=== PATIENT | female | born 1945 | race Asian ===

== ENCOUNTER 2018-01-21 14:29 | Inpatient (IN) | payer MEDICARE, OTHER ==
[2018-01-21 16:01] LABS: WHITE BLOOD COUNT 10.9 10^3/ul (4.8-10.8)
[2018-01-21 16:01] LABS: ABNORMAL IP MESSAGE 1; HEMATOCRIT 35.5 % (37.0-47.0); HEMOGLOBIN 12.4 g/dl (12.0-16.0); MEAN CORPUSCULAR HEMOGLOBIN 32.3 pg (29.0-33.0); MEAN CORPUSCULAR HGB CONC 34.9 g/dl (32.0-37.0); MEAN CORPUSCULAR VOLUME 92.4 fl (82.0-101.0); PLATELET COUNT 211 10^3/UL (140-415); RED BLOOD COUNT 3.84 10^6/ul (4.20-5.40)
[2018-01-21 16:13] LABS: ADD MAN DIFF? YES; POSITIVE DIFF @See below
[2018-01-21 16:26] LABS: LACTIC ACID 2.4 mmol/L (0.5-2.0)
[2018-01-21 16:28] LABS: ALANINE AMINOTRANSFERASE 44 IU/L (13-69); ALBUMIN 4.3 g/dl (3.3-4.9); ALBUMIN/GLOBULIN RATIO 1.26; ALKALINE PHOSPHATASE 104 IU/L (42-121); ANION GAP 21 (8-16); ASPARTATE AMINO TRANSFERASE 93 IU/L (15-46); BLOOD UREA NITROGEN 52 mg/dl (7-20); CALCIUM 10.8 mg/dl (8.4-10.2); CARBON DIOXIDE 21 mmol/L (21-31); CHLORIDE 115 mmol/L (97-110); CREATININE 1.13 mg/dl (0.44-1.00); GLUCOSE 161 mg/dl (70-220); POTASSIUM 3.9 mmol/L (3.5-5.1); SODIUM 153 mmol/L (135-144); TOTAL PROTEIN 7.7 g/dl (6.1-8.1)
[2018-01-21 16:29] LABS: INR 1.05; PARTIAL THROMBOPLASTIN TIME 29.9 Sec (25.0-35.0); PROTIME 13.8 Sec (11.9-14.9); PT RATIO 1.1
[2018-01-21 16:39] LABS: AMPHETAMINE/METHAMPHETAMINE NEGATIVE (NEGATIVE); BARBITURATES NEGATIVE (NEGATIVE); BENZODIAZEPINES POSITIVE (NEGATIVE); CANNABINOIDS NEGATIVE (NEGATIVE); COCAINE NEGATIVE (NEGATIVE); OPIATES NEGATIVE (NEGATIVE)
[2018-01-21 16:41] LABS: TROPONIN-I < 0.012 ng/ml (0.00-0.12)
[2018-01-21 16:43] LABS: ETHANOL < 10.0 mg/dl
[2018-01-21] MEDS: SOD CHLORIDE 0.9% IV (17:01)
[2018-01-21] MEDS: MEROPENEM 500MG/50 ML (PMX) 50 ML IVPB (17:02)
[2018-01-21 17:35] LABS: ADD UMIC NO; ANISOCYTOSIS 1+ (0-0); BAND NEUTROPHILS #M 1.1 10^3/ul (0.0-0.6); BAND NEUTROPHILS % (M) 11 % (0-4); EOSINOPHILS % (M) 2 % (0-7); GIANT THROMBO% (M) 1 % (0-0); LYMPHOCYTES #M 2.5 10^3/ul (0.8-2.9); LYMPHOCYTES % (M) 23 % (15-51); MONOCYTE #M 0.9 10^3/ul (0.3-0.9); MONOCYTES % (M) 9 % (0-11); PLATELET ESTIMATE NORMAL; POIKILOCYTOSIS 1+ (0-0); REACTIVE LYMPHOCYTES #M 2.9 10^3/ul (0.0-0.0); REACTIVE LYMPHOCYTES% (M) 27 % (0-0); SEG NEUT #M 3.2 10^3/ul (1.6-7.5); SEGMENTED NEUTROPHILS (M) % 28 % (39-77); SMUDGE%M 3 % (0-0); UR ASCORBIC ACID 40 mg/dL (NEGATIVE); UR BILIRUBIN (Dip) NEGATIVE (NEGATIVE); UR BLOOD (Dip) NEGATIVE (NEGATIVE); UR CLARITY CLEAR (CLEAR); UR COLOR YELLOW (YELLOW); UR GLUCOSE (Dip) NEGATIVE (NEGATIVE); UR KETONES (Dip) NEGATIVE (NEGATIVE); UR LEUKOCYTE ESTERASE (Dip) NEGATIVE Leu/ul (NEGATIVE); UR NITRITE (Dip) NEGATIVE (NEGATIVE); UR SPECIFIC GRAVITY (Dip) 1.017 (1.003-1.030); UR TOTAL PROTEIN (Dip) NEGATIVE (NEGATIVE); UR UROBILINOGEN (Dip) NEGATIVE (NEGATIVE)
[2018-01-21] MEDS ORDERED: SOD CHLORIDE 0.45% 1,000 ML IV (18:08)
[2018-01-21] MEDS ORDERED: NA PHOSPHATE/BIPHOS 133 ML ENEMA PR (18:30)
[2018-01-21] MEDS ORDERED: ONDANSETRON 4 MG INJ IV (18:30)
[2018-01-21] MEDS ORDERED: hydrALAzine 20 MG INJ IV (18:30)
[2018-01-21] MEDS ORDERED: NITROGLYCERIN (SL) 0.4 MG TAB SL (18:30)
[2018-01-21] MEDS ORDERED: ALBUTEROL/IPRATROPIUM (NEB) 3 ML AMP HHN (18:30)
[2018-01-21] MEDS ORDERED: DOCUSATE SODIUM 100 MG CAP PO (18:30)
[2018-01-21] MEDS ORDERED: MAGNESIUM HYDROXIDE 30ML CUP PO (18:30)
[2018-01-21] MEDS ORDERED: morphine 2 MG INJ IV (18:30)
[2018-01-21] MEDS: DEXTROSE 5% 1,000 ML IV (18:30)
[2018-01-21] MEDS ORDERED: NACL 0.9% 3 ML SYG IV (18:30)
[2018-01-21 20:41] LABS: LACTIC ACID 1.2 mmol/L (0.5-2.0)
[2018-01-21 20:44] LABS: INR 1.07; PT RATIO 1.1
[2018-01-21 20:45] LABS: PARTIAL THROMBOPLASTIN TIME 31.1 Sec (25.0-35.0)
[2018-01-21 21:02] LABS: FREE T4 (FREE THYROXINE) 1.26 ng/dl (0.78-2.44)
[2018-01-21 23:32] LABS: LACTIC ACID 1.5 mmol/L (0.5-2.0)
[2018-01-22 00:51] LABS: LACTIC ACID 1.6 mmol/L (0.5-2.0)
[2018-01-22] MEDS: HEPARIN 5,000 UNIT/0.5 ML VIAL SC ×3 (01:15→21:04)
[2018-01-22] MEDS: HYDROCODONE/APAP (5/325) TAB PO (02:01)
[2018-01-22] MEDS: LORAZEPAM 2 MG INJ IV ×2 (02:36→10:12)
[2018-01-22 04:36] LABS: LACTIC ACID 1.1 mmol/L (0.5-2.0)
[2018-01-22] MEDS: PANTOPRAZOLE (EC) 40 MG TAB PO (06:14)
[2018-01-22 06:16] LABS: ABNORMAL IP MESSAGE 1; HEMOGLOBIN 11.7 g/dl (12.0-16.0); MEAN CORPUSCULAR HEMOGLOBIN 32.6 pg (29.0-33.0); MEAN CORPUSCULAR HGB CONC 35.5 g/dl (32.0-37.0); MEAN CORPUSCULAR VOLUME 91.9 fl (82.0-101.0); MEAN PLATELET VOLUME 12.2 fl (7.4-10.4); PLATELET COUNT 234 10^3/UL (140-415); POSITIVE DIFF @See below; RED BLOOD COUNT 3.59 10^6/ul (4.20-5.40); RED CELL DISTRIBUTION WIDTH 14.7 % (11.5-14.5)
[2018-01-22 06:16] LABS: WHITE BLOOD COUNT 11.5 10^3/ul (4.8-10.8)
[2018-01-22 06:18] LABS: ADD MAN DIFF? YES
[2018-01-22 06:37] LABS: LACTIC ACID 1.3 mmol/L (0.5-2.0)
[2018-01-22 06:38] LABS: CHOL/HDL RATIO 5.2 RATIO; HDL CHOLESTEROL 19 mg/dl (33-92); LDL CHOLESTEROL,CALCULATED 24 mg/dl; TRIGLYCERIDES 280 mg/dl (0-149)
[2018-01-22 06:38] LABS: CHOLESTEROL 99 mg/dl (100-200)
[2018-01-22 06:42] LABS: ANION GAP 19 (8-16); BLOOD UREA NITROGEN 36 mg/dl (7-20); CARBON DIOXIDE 23 mmol/L (21-31); CHLORIDE 120 mmol/L (97-110); GLUCOSE 124 mg/dl (70-220); MAGNESIUM 1.7 mg/dl (1.7-2.5); PHOSPHORUS 4.1 mg/dl (2.5-4.9); POTASSIUM 3.8 mmol/L (3.5-5.1); SODIUM 158 mmol/L (135-144)
[2018-01-22] MEDS: DEXTROSE 5% 1,000 ML IV ×2 (06:44→16:05)
[2018-01-22 06:46] LABS: HEMOGLOBIN A1C 5.7 % (0-5.9)
[2018-01-22] MEDS: LEVOTHYROXINE 112 MCG TAB PO (07:00)
[2018-01-22 07:44] LABS: ANISOCYTOSIS 1+ (0-0); BAND NEUTROPHILS #M 0.1 10^3/ul (0.0-0.6); BAND NEUTROPHILS % (M) 1 % (0-4); EOSINOPHILS % (M) 3 % (0-7); GIANT THROMBO% (M) 1 % (0-0); LYMPHOCYTES #M 3.3 10^3/ul (0.8-2.9); LYMPHOCYTES % (M) 29 % (15-51); MONOCYTE #M 1.2 10^3/ul (0.3-0.9); MONOCYTES % (M) 11 % (0-11); PLATELET ESTIMATE NORMAL; POIKILOCYTOSIS 1+ (0-0); REACTIVE LYMPHOCYTES #M 1.8 10^3/ul (0.0-0.0); REACTIVE LYMPHOCYTES% (M) 16 % (0-0); SEG NEUT #M 4.6 10^3/ul (1.6-7.5); SEGMENTED NEUTROPHILS (M) % 40 % (39-77); SMUDGE%M 4 % (0-0); TARGET CELLS 1+ (0-0)
[2018-01-22] MEDS ORDERED: LEVOFLOXACIN 750MG/D5W (PMX) 150 ML IVPB (09:00)
[2018-01-22 11:17] LABS: LACTIC ACID 1.2 mmol/L (0.5-2.0)
[2018-01-22 14:57] LABS: LACTIC ACID 1.2 mmol/L (0.5-2.0)
[2018-01-23] MEDS: LORAZEPAM 2 MG INJ IV ×2 (02:25→16:11)
[2018-01-23] MEDS: DEXTROSE 5% 1,000 ML IV ×3 (03:00→13:00)
[2018-01-23] MEDS: LEVOTHYROXINE 112 MCG TAB PO (05:55)
[2018-01-23] MEDS: PANTOPRAZOLE (EC) 40 MG TAB PO (05:55)
[2018-01-23] MEDS: HEPARIN 5,000 UNIT/0.5 ML VIAL SC ×2 (08:44→20:39)
[2018-01-23 09:10] LABS: ABNORMAL IP MESSAGE 1; HEMATOCRIT 28.4 % (37.0-47.0); HEMOGLOBIN 10.2 g/dl (12.0-16.0); MEAN CORPUSCULAR HEMOGLOBIN 32.3 pg (29.0-33.0); MEAN CORPUSCULAR HGB CONC 35.9 g/dl (32.0-37.0); MEAN CORPUSCULAR VOLUME 89.9 fl (82.0-101.0); MEAN PLATELET VOLUME 12.4 fl (7.4-10.4); PLATELET COUNT 234 10^3/UL (140-415); RED BLOOD COUNT 3.16 10^6/ul (4.20-5.40)
[2018-01-23 09:10] LABS: WHITE BLOOD COUNT 10.4 10^3/ul (4.8-10.8)
[2018-01-23 09:18] LABS: ADD MAN DIFF? YES; POSITIVE DIFF @See below
[2018-01-23 09:31] LABS: ANION GAP 15 (8-16); BLOOD UREA NITROGEN 18 mg/dl (7-20); CALCIUM 8.9 mg/dl (8.4-10.2); CARBON DIOXIDE 21 mmol/L (21-31); CHLORIDE 113 mmol/L (97-110); CREATININE 0.56 mg/dl (0.44-1.00); GLUCOSE 120 mg/dl (70-220); POTASSIUM 3.5 mmol/L (3.5-5.1); SODIUM 145 mmol/L (135-144)
[2018-01-23 10:09] LABS: ANISOCYTOSIS 1+ (0-0); BAND NEUTROPHILS #M 0.6 10^3/ul (0.0-0.6); BAND NEUTROPHILS % (M) 6 % (0-4); BASOPHIL #M 0.1 10^3/ul (0.0-0.0); BASOPHILS % (M) 1 % (0-2); EOSINOPHILS % (M) 2 % (0-7); ERYTHROBLAST% (NRBC) (M) 1 % (0-0); LYMPHOCYTES #M 4.9 10^3/ul (0.8-2.9); LYMPHOCYTES % (M) 48 % (15-51); METAMYELOCYTES #M 0.5 10^3/ul (0.0-0.0); METAMYELOCYTES %M 5 % (0-0); MONOCYTE #M 1.3 10^3/ul (0.3-0.9); MONOCYTES % (M) 13 % (0-11); MYELOCYTES #M 0.2 10^3/ul (0.0-0.0); MYELOCYTES % (M) 2 % (0-0); PLATELET ESTIMATE NORMAL; POLYCHROMASIA 1+ (0-0); REACTIVE LYMPHOCYTES #M 0.4 10^3/ul (0.0-0.0); REACTIVE LYMPHOCYTES% (M) 4 % (0-0); SEGMENTED NEUTROPHILS (M) % 19 % (39-77); SMUDGE%M 36 % (0-0); TARGET CELLS 3+ (0-0)
[2018-01-23] MEDS: HYDROCODONE/APAP (5/325) TAB PO (14:05)
[2018-01-23] MEDS: ACETAMINOPHEN 325 MG TAB PO (22:04)
[2018-01-24] MEDS: PANTOPRAZOLE (EC) 40 MG TAB PO (06:44)
[2018-01-24] MEDS: LEVOTHYROXINE 112 MCG TAB PO (06:44)
[2018-01-24] MEDS: HEPARIN 5,000 UNIT/0.5 ML VIAL SC ×2 (09:25→21:07)
[2018-01-24 09:52] LABS: HEMATOCRIT 30.5 % (37.0-47.0); HEMOGLOBIN 10.8 g/dl (12.0-16.0); MEAN CORPUSCULAR HEMOGLOBIN 32.3 pg (29.0-33.0); MEAN CORPUSCULAR HGB CONC 35.4 g/dl (32.0-37.0); MEAN CORPUSCULAR VOLUME 91.3 fl (82.0-101.0); MEAN PLATELET VOLUME 11.9 fl (7.4-10.4); PLATELET COUNT 266 10^3/UL (140-415); RED BLOOD COUNT 3.34 10^6/ul (4.20-5.40); RED CELL DISTRIBUTION WIDTH 14.3 % (11.5-14.5)
[2018-01-24 09:52] LABS: WHITE BLOOD COUNT 7.7 10^3/ul (4.8-10.8)
[2018-01-24 09:55] LABS: ADD MAN DIFF? YES; POSITIVE DIFF @See below
[2018-01-24 10:19] LABS: ANION GAP 15 (8-16); BLOOD UREA NITROGEN 10 mg/dl (7-20); CARBON DIOXIDE 25 mmol/L (21-31); CHLORIDE 110 mmol/L (97-110); CREATININE 0.53 mg/dl (0.44-1.00); GLUCOSE 110 mg/dl (70-220); POTASSIUM 3.7 mmol/L (3.5-5.1); SODIUM 146 mmol/L (135-144)
[2018-01-24] MEDS: LORAZEPAM 2 MG INJ IV ×3 (12:48→23:04)
[2018-01-24 13:53] LABS: ANISOCYTOSIS 1+ (0-0); BAND NEUTROPHILS #M 0.2 10^3/ul (0.0-0.6); BAND NEUTROPHILS % (M) 3 % (0-4); BASOPHILS % (M) 1 % (0-2); EOSINOPHILS % (M) 9 % (0-7); ERYTHROBLAST% (NRBC) (M) 3 % (0-0); GIANT THROMBO% (M) 8 % (0-0); LYMPHOCYTES #M 1.9 10^3/ul (0.8-2.9); LYMPHOCYTES % (M) 25 % (15-51); METAMYELOCYTES #M 0.1 10^3/ul (0.0-0.0); METAMYELOCYTES %M 2 % (0-0); MONOCYTE #M 0.6 10^3/ul (0.3-0.9); MONOCYTES % (M) 9 % (0-11); MYELOCYTES #M 0.1 10^3/ul (0.0-0.0); MYELOCYTES % (M) 2 % (0-0); PLATELET ESTIMATE NORMAL; REACTIVE LYMPHOCYTES #M 0.3 10^3/ul (0.0-0.0); REACTIVE LYMPHOCYTES% (M) 5 % (0-0); SEG NEUT #M 3.4 10^3/ul (1.6-7.5); SEGMENTED NEUTROPHILS (M) % 44 % (39-77); SMUDGE%M 4 % (0-0)
[2018-01-24] MEDS: DEXTROSE 5% 1,000 ML IV (14:14)
[2018-01-24] MEDS: HYDROCODONE/APAP (5/325) TAB PO (15:59)
[2018-01-25] MEDS: DEXTROSE 5% 1,000 ML IV ×2 (04:24→12:29)
[2018-01-25] MEDS: LEVOTHYROXINE 112 MCG TAB PO (05:21)
[2018-01-25] MEDS: PANTOPRAZOLE (EC) 40 MG TAB PO (05:21)
[2018-01-25] MEDS: HYDROCODONE/APAP (5/325) TAB PO ×2 (07:01→20:02)
[2018-01-25 08:48] LABS: WHITE BLOOD COUNT 7.5 10^3/ul (4.8-10.8)
[2018-01-25 08:48] LABS: HEMATOCRIT 28.5 % (37.0-47.0); HEMOGLOBIN 9.7 g/dl (12.0-16.0); MEAN CORPUSCULAR HEMOGLOBIN 31.3 pg (29.0-33.0); MEAN CORPUSCULAR VOLUME 91.9 fl (82.0-101.0); MEAN PLATELET VOLUME 12.5 fl (7.4-10.4); PLATELET COUNT 290 10^3/UL (140-415); RED CELL DISTRIBUTION WIDTH 14.4 % (11.5-14.5)
[2018-01-25 08:49] LABS: ADD MAN DIFF? YES; POSITIVE DIFF @See below
[2018-01-25 08:55] LABS: ANION GAP 13 (8-16); BLOOD UREA NITROGEN 8 mg/dl (7-20); CALCIUM 8.5 mg/dl (8.4-10.2); CARBON DIOXIDE 24 mmol/L (21-31); CHLORIDE 109 mmol/L (97-110); CREATININE 0.56 mg/dl (0.44-1.00); GLUCOSE 124 mg/dl (70-220); POTASSIUM 3.4 mmol/L (3.5-5.1); SODIUM 143 mmol/L (135-144)
[2018-01-25] MEDS: HEPARIN 5,000 UNIT/0.5 ML VIAL SC ×2 (09:03→20:04)
[2018-01-25 09:56] LABS: ANISOCYTOSIS 1+ (0-0); BAND NEUTROPHILS #M 0.1 10^3/ul (0.0-0.6); BAND NEUTROPHILS % (M) 2 % (0-4); EOSINOPHILS % (M) 6 % (0-7); GIANT THROMBO% (M) 9 % (0-0); HYPOCHROMASIA 1+ (0-0); LYMPHOCYTES #M 1.9 10^3/ul (0.8-2.9); LYMPHOCYTES % (M) 26 % (15-51); METAMYELOCYTES #M 0.1 10^3/ul (0.0-0.0); METAMYELOCYTES %M 2 % (0-0); MICROCYTOSIS 1+ (0-0); MONOCYTE #M 0.9 10^3/ul (0.3-0.9); MONOCYTES % (M) 12 % (0-11); MYELOCYTES #M 0.1 10^3/ul (0.0-0.0); MYELOCYTES % (M) 2 % (0-0); PLATELET ESTIMATE NORMAL; POLYCHROMASIA 1+ (0-0); PROMYELOCYTES % (M) 1 % (0-0); REACTIVE LYMPHOCYTES #M 0.7 10^3/ul (0.0-0.0); REACTIVE LYMPHOCYTES% (M) 10 % (0-0); SEG NEUT #M 2.9 10^3/ul (1.6-7.5); SEGMENTED NEUTROPHILS (M) % 39 % (39-77); SMUDGE%M 21 % (0-0)
[2018-01-25] MEDS: LORAZEPAM 2 MG INJ IV ×2 (10:55→22:32)
[2018-01-25] MEDS: morphine 2 MG INJ IV (14:59)
[2018-01-26] MEDS: LEVOTHYROXINE 112 MCG TAB PO (05:31)
[2018-01-26] MEDS: PANTOPRAZOLE (EC) 40 MG TAB PO (05:32)
[2018-01-26] MEDS: HYDROCODONE/APAP (5/325) TAB PO ×3 (06:49→20:41)
[2018-01-26 07:02] LABS: HEMATOCRIT 28.4 % (37.0-47.0); HEMOGLOBIN 9.8 g/dl (12.0-16.0); MEAN CORPUSCULAR HEMOGLOBIN 32.1 pg (29.0-33.0); MEAN CORPUSCULAR HGB CONC 34.5 g/dl (32.0-37.0); MEAN CORPUSCULAR VOLUME 93.1 fl (82.0-101.0); PLATELET COUNT 325 10^3/UL (140-415); RED BLOOD COUNT 3.05 10^6/ul (4.20-5.40); RED CELL DISTRIBUTION WIDTH 14.6 % (11.5-14.5)
[2018-01-26 07:06] LABS: ADD MAN DIFF? YES; POSITIVE DIFF @See below
[2018-01-26 07:34] LABS: ANION GAP 13 (8-16); BLOOD UREA NITROGEN 13 mg/dl (7-20); CALCIUM 8.7 mg/dl (8.4-10.2); CARBON DIOXIDE 24 mmol/L (21-31); CHLORIDE 112 mmol/L (97-110); CREATININE 0.58 mg/dl (0.44-1.00); GLUCOSE 94 mg/dl (70-220); POTASSIUM 3.6 mmol/L (3.5-5.1); SODIUM 145 mmol/L (135-144)
[2018-01-26 09:05] LABS: ANISOCYTOSIS 1+ (0-0); BAND NEUTROPHILS #M 0.5 10^3/ul (0.0-0.6); BAND NEUTROPHILS % (M) 6 % (0-4); BASOPHILS % (M) 1 % (0-2); EOSINOPHILS % (M) 5 % (0-7); GIANT THROMBO% (M) 6 % (0-0); LYMPHOCYTES #M 3.6 10^3/ul (0.8-2.9); LYMPHOCYTES % (M) 41 % (15-51); MONOCYTE #M 0.8 10^3/ul (0.3-0.9); MONOCYTES % (M) 9 % (0-11); MYELOCYTES % (M) 1 % (0-0); PLATELET ESTIMATE NORMAL; PROMYELOCYTES % (M) 1 % (0-0); REACTIVE LYMPHOCYTES #M 0.1 10^3/ul (0.0-0.0); REACTIVE LYMPHOCYTES% (M) 2 % (0-0); SEG NEUT #M 3.1 10^3/ul (1.6-7.5); SEGMENTED NEUTROPHILS (M) % 34 % (39-77); SMUDGE%M 54 % (0-0)
[2018-01-26] MEDS: ACETAMINOPHEN 325 MG TAB PO (09:10)
[2018-01-26] MEDS: HEPARIN 5,000 UNIT/0.5 ML VIAL SC ×2 (09:10→20:41)
== END 2018-01-26 23:43 | DRG 641 ==
LOC: MS4 17:56 → E/R 14:29
DX: E87.0 Hyperosmolality and hypernatremia (principal); E87.2 Acidosis; F13.10 Sedative, hypnotic or anxiolytic abuse, uncomplicated; E03.9 Hypothyroidism, unspecified; I10 Essential (primary) hypertension; F41.9 Anxiety disorder, unspecified; F32.9 Major depressive disorder, single episode, unspecified; E78.5 Hyperlipidemia, unspecified; R41.82 Altered mental status, unspecified
CPT/HCPCS: 36415; 70450; 71045; 80048; 80053; 80061; 80306; 80307; 81003; 82962; 83036; 83605; 83735; 84100; 84439; 84443; 84484; 85025; 85610; 85730; 87040; 87086; 92610; 93005; 96372; 96374; 96375; 96376; 97110; 97116; 97162; 97530; 99291-25